=== PATIENT | female | born 1995 | race Two or more races ===

== ENCOUNTER → 2021-06-28 | Outpatient (REF) | payer BC | LOC: M SFHCPLAZ 15:52 | PROVIDERS: ATTEND Family Medicine | DX: I10 Essential (primary) hypertension (principal); Z53.9 Procedure and treatment not carried out, unspecified reason ==

== ENCOUNTER → 2021-08-02 | Outpatient (REF) | LOC: M LAB 10:56 | PROVIDERS: ATTEND Nurse Practitioner Adult Health | DX: Z02.1 Encounter for pre-employment examination (principal) ==

== ENCOUNTER 2021-09-09 03:16 | Emergency (ER) | payer BC ==
[~2021-09-09] VITALS: Ht 165.1 cm; Wt 105.5 kg
[2021-09-09 03:17] VITALS: BP 160/100
[2021-09-09] MEDS ORDERED: ACET-683 PO (03:24)
[2021-09-09] MEDS ORDERED: CHLO25TA PO (03:24)
[2021-09-09] MEDS ORDERED: ACETAMINOPHEN 325 MG TAB PO ONE (07:15)
[2021-09-09] MEDS ORDERED: IBUPROFEN 600MG TAB PO ONE (07:15)
[2021-09-09 08:22] VITALS: O2SAT 97
[2021-09-09 08:28] LABS: BASO % 0.7 % (0.0-1.0); EOS % 0.5 % (0.0-3.0); HEMATOCRIT 41.2 % (36.0-47.0); HEMOGLOBIN 13.9 g/dl (12.0-15.5); LYMPH # 0.6 10^3/uL (1.5-5.0); MEAN CORPUSCULAR HEMOGLOBIN 25.4 pg (27.0-33.0); MEAN CORPUSCULAR HGB CONC 33.7 g/dl (32.0-36.5); MEAN CORPUSCULAR VOLUME 75.3 fl (80.0-96.0); MONO % 17.9 % (2.0-8.0); NEUTROPHILS # 3.9 10^3/uL (1.5-8.5); NEUTROPHILS % 69.4 % (36.0-66.0); RED BLOOD COUNT 5.47 10^6/uL (4.00-5.40); WHITE BLOOD COUNT 5.6 10^3/uL (4.0-10.0)
[2021-09-09 08:42] LABS: BLOOD UREA NITROGEN 7 MG/DL (7-18); CALCIUM LEVEL 9.2 MG/DL (8.5-10.1); CARBON DIOXIDE LEVEL 22 MEQ/L (21-32); CHLORIDE LEVEL 111 MEQ/L (98-107); CREATININE FOR GFR 0.82 MG/DL (0.55-1.30); GLOMERULAR FILTRATION RATE > 60.0 (>60); GLUCOSE, FASTING 94 MG/DL (70-100); SODIUM LEVEL 141 MEQ/L (136-145)
[2021-09-09 08:45] LABS: HCG, SERUM QUALITATIVE NEGATIVE (NEGATIVE)
[2021-09-09 09:51] LABS: PLTBLUE- EDTA FREE CALC 190 K/mm3 (172-450); PLTBLUE- EDTA FREE MACHINE 173 10^3/uL (172-450)
[2021-09-10] MEDS ORDERED: FAMO20TA PO (02:07)
[2021-09-10] MEDS ORDERED: TESS100C PO (02:07)
== END 2021-09-09 11:39 | disposition home or self-care (01) ==
LOC: M ED 03:16
DX: U07.1 COVID-19 (principal); I10 Essential (primary) hypertension; Z79.899 Other long term (current) drug therapy

== ENCOUNTER 2021-09-09 12:42 | Outpatient (CLI) | payer BC ==
[2021-09-09 11:59] VITALS: BP 105/70
[2021-09-09 12:29] VITALS: BP 115/74
[~2021-09-09 12:42] MED LIST: ACET-683 PO; ACETAMINOPHEN TAB 650MG DOSE (2X325MG) PO PRN; ALBUTEROL 90 MCG/ACT 8GM HFA INHALER INH PRN; ALBUTEROL SULFATE 2.5 MG/0.5 ML INH NEB SOLN INH PRN; CASIRIVIMAB/IMDEVIMAB 1,200 MG in NS 250 ML IV ONE; CHLO25TA PO; EPINEPHrine INJ 1 MG/ML 1ML AMP IM PRN; NS 1,000 ML IV SCH; diphenhydrAMINE 50MG/ML VIAL (J1200) IV PRN; methylPREDNISolone 125MG 2ML VIAL IV PRN
[2021-09-09 12:59] VITALS: BP 123/73
[2021-09-09 13:59] VITALS: BP 136/93
[2021-09-10] MEDS ORDERED: TESS100C PO (02:07)
[2021-09-10] MEDS ORDERED: FAMO20TA PO (02:07)
== END 2021-09-09 13:59 | disposition home or self-care (01) ==
LOC: M OPCLI4 12:42
PROVIDERS: ATTEND Internal Medicine
DX: U07.1 COVID-19 (principal)

== ENCOUNTER 2021-09-10 00:56 | Emergency (ER) | payer BC ==
[~2021-09-10] VITALS: Ht 165.1 cm; Wt 102.7 kg
[~2021-09-10 00:56] MED LIST changes: -ACETAMINOPHEN TAB 650MG DOSE (2X325MG) PO PRN; -ALBUTEROL 90 MCG/ACT 8GM HFA INHALER INH PRN; -ALBUTEROL SULFATE 2.5 MG/0.5 ML INH NEB SOLN INH PRN; -CASIRIVIMAB/IMDEVIMAB 1,200 MG in NS 250 ML IV ONE; -EPINEPHrine INJ 1 MG/ML 1ML AMP IM PRN; -NS 1,000 ML IV SCH; -diphenhydrAMINE 50MG/ML VIAL (J1200) IV PRN; -methylPREDNISolone 125MG 2ML VIAL IV PRN
[2021-09-10] MEDS ORDERED: ACETAMINOPHEN TAB 650MG DOSE (2X325MG) PO ONE (02:00)
[2021-09-10] MEDS ORDERED: TESS100C PO (02:07)
[2021-09-10] MEDS ORDERED: FAMO20TA PO (02:07)
[2021-09-10 02:21] VITALS: BP 169/100
== END 2021-09-10 02:28 | disposition home or self-care (01) ==
LOC: M ED 00:56
DX: U07.1 COVID-19 (principal); K21.9 Gastro-esophageal reflux disease without esophagitis; K29.70 Gastritis, unspecified, without bleeding; R00.0 Tachycardia, unspecified; I10 Essential (primary) hypertension